=== PATIENT | male | born 1955 | race Hispanic/Latino ===

== ENCOUNTER 2019-09-25 17:56 | Inpatient (IN) | payer MEDICARE ==
[~2019-09-25] VITALS: Ht 175.3 cm; Wt 68.9 kg
[2019-09-25 18:30] LABS: BASOPHILS % (AUTO) 0.3 % (0.0-5.0); EOSINOPHILS % (AUTO) 0.1 % (0.0-8.0); HEMATOCRIT 35.9 % (42-54); LYMPHOCYTES % (AUTO) 8.5 % (21.0-51.0); MEAN CORPUSCULAR HEMOGLOBIN 29.1 pg (27.0-33.0); MEAN CORPUSCULAR HGB CONC 33.4 g/dL (32.0-36.0); MEAN CORPUSCULAR VOLUME 87.1 fL (79-99); MONOCYTES % (AUTO) 11.2 % (3.0-13.0); NEUTROPHILS % (AUTO) 79.2 % (40.0-77.0); PLATELET COUNT (AUTO) 335 K/uL (130-400); RED BLOOD CELL COUNT(AUTO) 4.12 MIL/uL (4.50-6.20); RED CELL DISTRIBUTION WIDTH 13.2 % (11.0-15.5); WHITE BLOOD COUNT (AUTO) 17.1 K/uL (4.8-10.8)
[2019-09-25 18:37] LABS: INR 0.94 (0.85-1.15); PARTIAL THROMBOPLASTIN TIME 28.5 SEC (26.3-35.5); PROTHROMBIN TIME 10.2 SEC (9.6-11.6)
[2019-09-25 18:41] LABS: APPEARANCE,URINE Clear (CLEAR); BILIRUBIN,URINE Negative (NEGATIVE); COLOR,URINE Yellow (YELLOW); GLUCOSE, URINE (UA) Negative (NEGATIVE); KETONES,URINE Negative (NEGATIVE); LEUKOCYTE ESTERASE ,URINE Moderate (NEGATIVE); NITRATE,URINE Negative (NEGATIVE); OCCULT BLOOD,URINE Negative (NEGATIVE); PROTEIN,URINE POS 1+ mg/dL (NEGATIVE); UROBILINOGEN,URINE 0.2 mg/dL (0.2-1.0)
[2019-09-25 18:50] LABS: ALBUMIN 3.1 g/dL (3.5-5.0); BILIRUBIN,TOTAL 0.2 mg/dL (0.2-1.0); CREATININE 1.7 mg/dL (0.5-1.5); TOTAL PROTEIN, SERUM 8.7 g/dL (6.0-8.3); TROPONIN I 0.04 ng/mL (0.00-0.06)
[2019-09-25 19:00] LABS: POTASSIUM 2.9 mmol/L (3.5-5.1)
[2019-09-25 19:21] LABS: BACTERIA,URINE Few /HPF (None Seen); MUCUS,URINE Few LPF (None Seen); RBC,URINE 0-1 /HPF (0-1); SQUAMOUS EPITHELIAL CELL,UR Few /HPF (0-2)
[2019-09-25] MEDS ORDERED: SODIUM CHLORIDE 0.9% 1000ML 1,000 ML IV ONE (20:33)
[2019-09-25] MEDS ORDERED: KETOROLAC TROMETHAMINE 30MG/ML ONE (20:33)
[2019-09-25] MEDS ORDERED: CEFTRIAXONE SODIUM 2 GM VIAL ONE (20:33)
[2019-09-25] MEDS ORDERED: POTASSIUM BICARB/CIT AC 25 MEQ TABLET.EFF ONE (21:38)
[2019-09-25] MEDS ORDERED: ONDANSETRON HCL 4 MG/2 ML VIAL IV PRN (22:00)
[2019-09-25] MEDS ORDERED: ACETAMINOPHEN 325 MG TAB PO PRN ×2 (22:00)
[2019-09-25] MEDS ORDERED: MAGNESIUM 2GM PREMIX 50ML 50 ML IV PRN (22:15)
[2019-09-25] MEDS: CEFTRIAXONE SODIUM 1 GM IVP SCH (22:15)
[2019-09-25] MEDS: LACTATED RINGERS 1000ML 1,000 ML IV SCH (22:15)
[2019-09-25 23:00] VITALS: BP 127/80
[2019-09-26] MEDS ORDERED: FOLI0.8T PO (00:46)
[2019-09-26] MEDS ORDERED: DEXL60CA3 PO (00:46)
[2019-09-26] MEDS ORDERED: LORA-192 PO (00:46)
[2019-09-26] MEDS ORDERED: TAMS-1 PO (00:46)
[2019-09-26] MEDS ORDERED: LEVO125T11 PO (00:46)
[2019-09-26] MEDS ORDERED: PHEN200C5 PO (00:46)
[2019-09-26] MEDS ORDERED: LOSA1TAB37 PO (00:46)
[2019-09-26 03:00] VITALS: BP 133/76
[2019-09-26 06:01] LABS: BASOPHILS % (AUTO) 0.4 % (0.0-5.0); EOSINOPHILS % (AUTO) 0.9 % (0.0-8.0); HEMATOCRIT 33.7 % (42-54); MEAN CORPUSCULAR HGB CONC 32.6 g/dL (32.0-36.0); MEAN CORPUSCULAR VOLUME 88.9 fL (79-99); MONOCYTES % (AUTO) 13.4 % (3.0-13.0); NEUTROPHILS % (AUTO) 71.8 % (40.0-77.0); PLATELET COUNT (AUTO) 295 K/uL (130-400); RED BLOOD CELL COUNT(AUTO) 3.79 MIL/uL (4.50-6.20); RED CELL DISTRIBUTION WIDTH 13.3 % (11.0-15.5); WHITE BLOOD COUNT (AUTO) 12.8 K/uL (4.8-10.8)
[2019-09-26 06:30] LABS: ALBUMIN 2.4 g/dL (3.5-5.0); BILIRUBIN,TOTAL 0.2 mg/dL (0.2-1.0); CREATININE 1.6 mg/dL (0.5-1.5); MAGNESIUM 2.4 mg/dL (1.80-2.40); THYROID STIMULATING HORMONE 2.15 uIU/mL (0.36-3.74); TOTAL PROTEIN, SERUM 7.4 g/dL (6.0-8.3)
[2019-09-26 06:34] LABS: POTASSIUM 2.7 mmol/L (3.5-5.1)
[2019-09-26 06:36] LABS: CRP QUANTITATIVE 157.5 mg/L (0.00-9.0)
[2019-09-26] MEDS: POTASSIUM CHLORIDE 20MEQ/100ML 100 ML IV PRN ×2 (06:41→10:46)
[2019-09-26] MEDS: LIDOCAINE HCL-MPF 1% 2ML VIAL IV PRN ×2 (06:41→10:46)
[2019-09-26 07:06] LABS: ERYTHROCYTE SEDIMENTATION RATE 65 MM/HR (0-20)
[2019-09-26 08:00] VITALS: BP 126/76
[2019-09-26] MEDS: LACTATED RINGERS 1000ML 1,000 ML IV SCH ×3 (10:08→21:47)
[2019-09-26] MEDS: FAMOTIDINE/PF 20 MG/2 ML VIAL IV SCH (10:08)
[2019-09-26] MEDS: CEFTRIAXONE SODIUM 1 GM IVP SCH ×2 (10:08→21:47)
--- NOTE | 2019-09-26 10:10 | NUR ---
PT. WITH POOR DENTITION, FOUL SMELLING BREATH AND PLAQUE NOTED. ORAL CARE PERFORMED WITH USE OF SUCTION SWAB PACK. Addendum: 09/26/19 at 1656 by SHIVANI NDIAYE RN RN VOIDED INCONTINENT IN BRIEF, CARE RENDERED AND REPOSITION.
--- NOTE | 2019-09-26 11:05 | NUR ---
RECEIVED CALL FROM PHIL PITTS, PT.'S SISTER/POA, UPDATED ON PT.'S STATUS AND QUESTIONS ANSWERED.
[2019-09-26 12:55] VITALS: BP 127/77
[2019-09-26] MEDS ORDERED: POTASSIUM CHLORIDE 20MEQ/100ML 100 ML IV SCH (13:00)
[2019-09-26] MEDS ORDERED: POTASSIUM CHLORIDE 20 MEQ/100 ML BAG IV SCH (13:00)
[2019-09-26 16:00] VITALS: BP 122/78
--- NOTE | 2019-09-26 16:35 | NUR ---
TRANSFERRED TO ROOM 415 VIA BED WITH BELONGINGS ACCOMPANIED BY THIS NURSE.
--- NOTE | 2019-09-26 16:48 | NUR ---
NOTIFIED PT.'S SISTER, PHIL PITTS, PT. WAS TRANSFERRED TO ROOM 415, VERBALIZED UNDERSTANDING. UPDATED ON STATUS AND QUESTIONS ANSWERED.
--- NOTE | 2019-09-26 17:49 | NUR ---
dante note call made to pt's next of kin sister marleny carcamo [phone]. and states pt resides with her at home. she is provider for him approx 5hrs daily. pt walks very little with cane, and mostly uses w/c, states she transports him to me as needed. dc plan is back home at [place]. she will pick him up at [place]. Addendum: 09/26/19 at 1755 by SAVANNA LINDSEY CM Amended: Links added.
--- NOTE | 2019-09-26 19:21 | NUR ---
RECEIVED TO RM 415 @ 1630. ALERT, IN NO APPARENT DISTRESS. AOX1, NON COMBATIVE. TRANSFER ORDERS ACKNOWLEDGED. FALL AND SEIZURE PRECAUTIONS INITIATED. STABLE.
[2019-09-26 19:36] VITALS: BP 137/79
[2019-09-26 23:46] VITALS: BP 136/76
[2019-09-27 03:59] VITALS: BP 138/80
[2019-09-27 04:48] LABS: BASOPHILS % (AUTO) 0.6 % (0.0-5.0); HEMATOCRIT 34.2 % (42-54); LYMPHOCYTES % (AUTO) 16.8 % (21.0-51.0); MEAN CORPUSCULAR HEMOGLOBIN 28.9 pg (27.0-33.0); MEAN CORPUSCULAR HGB CONC 32.7 g/dL (32.0-36.0); MEAN CORPUSCULAR VOLUME 88.1 fL (79-99); MONOCYTES % (AUTO) 12.5 % (3.0-13.0); NEUTROPHILS % (AUTO) 66.8 % (40.0-77.0); PLATELET COUNT (AUTO) 296 K/uL (130-400); RED BLOOD CELL COUNT(AUTO) 3.88 MIL/uL (4.50-6.20); RED CELL DISTRIBUTION WIDTH 13.2 % (11.0-15.5)
[2019-09-27 05:05] LABS: ALBUMIN 2.3 g/dL (3.5-5.0); BILIRUBIN,TOTAL 0.4 mg/dL (0.2-1.0); CREATININE 1.1 mg/dL (0.5-1.5); MAGNESIUM 2.5 mg/dL (1.80-2.40); POTASSIUM 3.5 mmol/L (3.5-5.1); TOTAL PROTEIN, SERUM 7.4 g/dL (6.0-8.3)
[2019-09-27 08:00] VITALS: BP 144/80
--- NOTE | 2019-09-27 09:10 | NUR ---
DR CHUA PAGED RE; + BC STATES OKAY WILL SEE PT.
--- NOTE | 2019-09-27 11:20 | NUR ---
DR. AMADOR PAGED RE;(+ BC) GRAM+ COCCI. STATES COULD BE A CONTAMINATE, BUT FOR NOW CONTINUE WITH ROCKIRBY[place]IN.
[2019-09-27] MEDS: LACTATED RINGERS 1000ML 1,000 ML IV SCH (11:46)
[2019-09-27] MEDS: FAMOTIDINE/PF 20 MG/2 ML VIAL IV SCH (11:46)
[2019-09-27] MEDS: CEFTRIAXONE SODIUM 1 GM IVP SCH ×2 (11:46→21:39)
[2019-09-27 12:00] VITALS: BP 148/77
--- NOTE | 2019-09-27 13:45 | NUR ---
RD NOTIFICATION Pt admitted with Sepsis, UTI, hypokalemia. Pt diet advanced to Puree diet order. Update (09/28/19) Diet modified to Puree, HTL. Pt with poor PO intake. Buttock Ulcer. Recommend protein modified pudding TID Recommend appetite stimulant as medically feasible RD to continue to monitor. Please notify as additional nutrition concerns arise. Thank you. Addendum: 09/28/19 at [address] Amended: Links added.
--- NOTE | 2019-09-27 14:40 | NUR ---
DYSPHAGIA EVAL COMPLETED RECOMMEND PUREED, HONEY THICK LIQUIDS, PILLS CRUSHED WITH PUREED TOLERATED. PER FAMILY (SISTER ZAK), Pt HAS ALWAYS BEEN IN PUREED DIET AND NEVER HAD COMPLICATIONS OF ASPIRATION. WE WILL MONITOR Pt WHILE ON PUREED DIET SINCE HE IS AT HIGH RISK OF ASPIRATION DUE TO SEVERE OROPHARYNGEAL DYSPHAGIA. TELEGRAPH INSPECTOR WILL FOLLOW Pt DURING THE LENGTH OF STAY IN THE HOSPITAL TO PROVIDE SKILLED SPEECH AND SWALLOWING EXERCISES. RECOMMENDATIONS: DYSPHAGIA THERAPY 3-5XWEEK TO INCREASE ORAL MOTOR STRENGTH AND PHARYNGEAL SWALLOW: LTG#1: Pt WILL TOLERATE LEAST RESTRICTIVE DIET TO MEET NUTRITION/HYDRATION WITH NO S/S OF ASPIRATION. LTG#2: SKILLED EDUCATION Pt/FAMILY/STAFF STG#1: Pt WILL PARTICIPATE IN LARYNGEAL ELEVATION/EXCURSION EXERCISES WITH 80% ACCURACY. STG#2: Pt WILL PARTICIPATE IN TONGUE BASE RETRACTION EXERCISES WITH 80% ACCURACY. STG#3: Pt WILL PARTICIPATE IN ORAL MOTOR EXERCISES WITH 80% ACCURACY. STG#4: Pt WILL TOLERATE THERAPEUTIC TRIALS OF NECTAR THICK LIQUIDS WITH NO OVERT S/S OF ASPIRATION. STG#5: Pt WILL BE ABLE TO PARTICIPATE IN MBSS AFTER 2-4 WEEKS OF THERAPEUTIC INTERVENTION. STG#6: SKILLED EDUCATION Pt/FAMILY/STAFF. TELEGRAPH INSPECTOR COORDINATED CARE WITH HAIDER Addendum: 09/27/[address]ON HERNANDEZ Amended: Links added.
--- NOTE | 2019-09-27 15:00 | NUR ---
[facility] consult Patient assessed as ordered. No open ulcer noted at this time. Report given to patient's nurse, Jose ECKERT. Alecia espinosass in use.
[2019-09-27 16:00] VITALS: BP 150/89
[2019-09-27] MEDS ORDERED: PHENYTOIN SODIUM 100 MG ERCAP PO ONE (16:03)
[2019-09-27] MEDS ORDERED: POTASSIUM CHLORIDE 20 MEQ ERTAB PO SCH (19:45)
[2019-09-27 20:42] VITALS: BP 147/78
[2019-09-27] MEDS: PHENYTOIN SODIUM 100 MG ERCAP PO SCH (21:39)
[2019-09-27] MEDS: TAMSULOSIN HCL 0.4 MG CAP.ER.24H PO SCH (21:39)
[2019-09-27] MEDS: LORAZEPAM 1 MG TABLET PO SCH (21:39)
[2019-09-27 23:59] VITALS: BP 136/79
[2019-09-28] MEDS: LACTATED RINGERS 1000ML 1,000 ML IV SCH ×2 (01:31→13:09)
[2019-09-28 04:07] VITALS: BP 143/75
[2019-09-28 05:13] LABS: BASOPHILS % (AUTO) 0.5 % (0.0-5.0); EOSINOPHILS % (AUTO) 3.7 % (0.0-8.0); LYMPHOCYTES % (AUTO) 13.7 % (21.0-51.0); MEAN CORPUSCULAR HEMOGLOBIN 28.8 pg (27.0-33.0); MEAN CORPUSCULAR HGB CONC 32.9 g/dL (32.0-36.0); MEAN CORPUSCULAR VOLUME 87.7 fL (79-99); MONOCYTES % (AUTO) 12.4 % (3.0-13.0); NEUTROPHILS % (AUTO) 69.3 % (40.0-77.0); PLATELET COUNT (AUTO) 344 K/uL (130-400); RED BLOOD CELL COUNT(AUTO) 3.99 MIL/uL (4.50-6.20); WHITE BLOOD COUNT (AUTO) 9.8 K/uL (4.8-10.8)
[2019-09-28 05:30] LABS: ALBUMIN 2.3 g/dL (3.5-5.0); BILIRUBIN,TOTAL 0.3 mg/dL (0.2-1.0); CREATININE 1.1 mg/dL (0.5-1.5); CRP QUANTITATIVE 112.5 mg/L (0.00-9.0); TOTAL PROTEIN, SERUM 7.6 g/dL (6.0-8.3)
[2019-09-28] MEDS: LEVOTHYROXINE 125 MCG TABLET PO SCH (06:32)
[2019-09-28 07:30] VITALS: BP 149/84
[2019-09-28] MEDS: **HM** DEXILANT 60MG PO SCH (08:14)
[2019-09-28] MEDS: FOLIC ACID 1 MG TABLET PO SCH (09:19)
[2019-09-28] MEDS: PHENYTOIN SODIUM 100 MG ERCAP PO SCH ×2 (09:20→20:02)
[2019-09-28] MEDS: LOSARTAN/HYDROCHLOROTHIAZIDE 50-12.5MG TABLET PO SCH (09:20)
[2019-09-28] MEDS: TAMSULOSIN HCL 0.4 MG CAP.ER.24H PO SCH ×2 (09:20→20:02)
[2019-09-28] MEDS: CEFTRIAXONE SODIUM 1 GM IVP SCH ×2 (09:21→22:36)
[2019-09-28] MEDS: FAMOTIDINE 20MG TAB 20 MG TAB PO SCH (09:21)
[2019-09-28] MEDS: LORAZEPAM 1 MG TABLET PO SCH ×2 (09:21→20:02)
--- NOTE | 2019-09-28 09:45 | NUR ---
SWALLOWING TREATMENT COMPLETED RECORDIST CHIEF COORDINATED WITH NURSE QUICK. Pt CURRENTLY ON PUREED WITH HONEY THICK LIQUIDS. Pt CONSUMING VERY MINIMAL P.O. INTAKE WITH MAX ASSISTANCE. RECORDIST CHIEF PROVIDED THERAPEUTIC TRIALS DURING BREAKFAST WITH 40% ACCURACY GIVEN MAX CUES (Pt COUGHED ONCE). RECORDIST CHIEF ASSISTED NURSE QUICK ADMINISTER CRUSHED MEDS WITH APPLESAUCE. RECORDIST CHIEF OBSERVED Pt SELF FEED PUREED WITH NO S/S OF ASPIRATION. RECORDIST CHIEF WILL CONTINUE TO FOLLOW Pt TO ADDRESS SWALLOWING GOALS AND PRECAUTIONS. Addendum: 09/28/[address]ON HERNANDEZ Amended: Links added.
[2019-09-28 11:00] VITALS: BP 127/77
[2019-09-28 16:00] VITALS: BP 136/80
[2019-09-28 20:18] VITALS: BP 136/76
[2019-09-29] VITALS (7 sets, daily range): BP systolic 121–147; BP diastolic 75–88
[2019-09-29] MEDS: LACTATED RINGERS 1000ML 1,000 ML IV SCH ×2 (03:14→20:01)
[2019-09-29 04:14] LABS: BASOPHILS % (AUTO) 0.6 % (0.0-5.0); EOSINOPHILS % (AUTO) 4.2 % (0.0-8.0); HEMATOCRIT 35.7 % (42-54); LYMPHOCYTES % (AUTO) 17.8 % (21.0-51.0); MEAN CORPUSCULAR HEMOGLOBIN 28.1 pg (27.0-33.0); MEAN CORPUSCULAR HGB CONC 31.9 g/dL (32.0-36.0); MEAN CORPUSCULAR VOLUME 88.1 fL (79-99); MONOCYTES % (AUTO) 11.9 % (3.0-13.0); NEUTROPHILS % (AUTO) 65.2 % (40.0-77.0); PLATELET COUNT (AUTO) 333 K/uL (130-400); RED BLOOD CELL COUNT(AUTO) 4.05 MIL/uL (4.50-6.20); RED CELL DISTRIBUTION WIDTH 13.1 % (11.0-15.5)
[2019-09-29 04:32] LABS: ALBUMIN 2.4 g/dL (3.5-5.0); BILIRUBIN,TOTAL 0.1 mg/dL (0.2-1.0); POTASSIUM 3.6 mmol/L (3.5-5.1); TOTAL PROTEIN, SERUM 7.5 g/dL (6.0-8.3)
[2019-09-29] MEDS: LEVOTHYROXINE 125 MCG TABLET PO SCH (06:24)
[2019-09-29] MEDS: **HM** DEXILANT 60MG PO SCH (09:00)
[2019-09-29] MEDS: PHENYTOIN SODIUM 100 MG ERCAP PO SCH ×2 (10:35→20:02)
[2019-09-29] MEDS: CEFTRIAXONE SODIUM 1 GM IVP SCH (10:35)
[2019-09-29] MEDS: LORAZEPAM 1 MG TABLET PO SCH ×2 (10:35→20:02)
[2019-09-29] MEDS: FOLIC ACID 1 MG TABLET PO SCH (10:35)
[2019-09-29] MEDS: TAMSULOSIN HCL 0.4 MG CAP.ER.24H PO SCH ×2 (10:35→20:02)
[2019-09-29] MEDS: LOSARTAN/HYDROCHLOROTHIAZIDE 50-12.5MG TABLET PO SCH (10:35)
[2019-09-29] MEDS: FAMOTIDINE 20MG TAB 20 MG TAB PO SCH (10:35)
--- NOTE | 2019-09-29 15:52 | NUR ---
SURYA FOLLOW UP Pt with MAXIME Rey diet order in place. No report of GI distress. PO intake at 100%. LBM 09/28/19. Recommend snacks between meals RD to monitor Pt weight, PO status, nutrition labs. Please notify as additional nutrition concerns arise. Thank you. Addendum: 09/29/19 at [address] Amended: Links added.
[2019-09-29] MEDS: CEFUROXIME AXETIL 250 MG TABLET PO SCH (20:02)
[2019-09-30 03:35] VITALS: BP 139/88
[2019-09-30 04:06] LABS: BASOPHILS % (AUTO) 0.5 % (0.0-5.0); EOSINOPHILS % (AUTO) 4.7 % (0.0-8.0); HEMATOCRIT 35.7 % (42-54); LYMPHOCYTES % (AUTO) 17.5 % (21.0-51.0); MEAN CORPUSCULAR HGB CONC 31.7 g/dL (32.0-36.0); MEAN CORPUSCULAR VOLUME 88.6 fL (79-99); MONOCYTES % (AUTO) 9.6 % (3.0-13.0); NEUTROPHILS % (AUTO) 67.3 % (40.0-77.0); PLATELET COUNT (AUTO) 340 K/uL (130-400); RED BLOOD CELL COUNT(AUTO) 4.03 MIL/uL (4.50-6.20); RED CELL DISTRIBUTION WIDTH 13.2 % (11.0-15.5); WHITE BLOOD COUNT (AUTO) 10.1 K/uL (4.8-10.8)
[2019-09-30 04:27] LABS: ALBUMIN 2.5 g/dL (3.5-5.0); CREATININE 0.9 mg/dL (0.5-1.5); CRP QUANTITATIVE 53.3 mg/L (0.00-9.0); MAGNESIUM 1.7 mg/dL (1.80-2.40); PHOSPHORUS 3.4 mg/dL (2.5-4.9); POTASSIUM 3.5 mmol/L (3.5-5.1)
[2019-09-30] MEDS: LEVOTHYROXINE 125 MCG TABLET PO SCH (05:42)
[2019-09-30 07:28] LABS: ALANINE AMINOTRANSFERASE 100 U/L (12-78); ALBUMIN 2.5 g/dL (3.5-5.0); ASPARTATE AMINOTRANSFERASE 56 U/L (10-37); BILIRUBIN,DIRECT < 0.1 mg/dL (0.0-0.3); BILIRUBIN,TOTAL 0.1 mg/dL (0.2-1.0); TOTAL PROTEIN, SERUM 7.8 g/dL (6.0-8.3)
[2019-09-30 08:00] VITALS: BP 120/77
[2019-09-30] MEDS: **HM** DEXILANT 60MG PO SCH (09:00)
[2019-09-30] MEDS: CEFUROXIME AXETIL 250 MG TABLET PO SCH ×2 (10:07→21:12)
[2019-09-30] MEDS: PHENYTOIN SODIUM 100 MG ERCAP PO SCH ×2 (10:08→21:12)
[2019-09-30] MEDS: TAMSULOSIN HCL 0.4 MG CAP.ER.24H PO SCH ×2 (10:08→21:13)
[2019-09-30] MEDS: FAMOTIDINE 20MG TAB 20 MG TAB PO SCH (10:08)
[2019-09-30] MEDS: FOLIC ACID 1 MG TABLET PO SCH (10:08)
[2019-09-30] MEDS: LOSARTAN/HYDROCHLOROTHIAZIDE 50-12.5MG TABLET PO SCH (10:08)
[2019-09-30] MEDS: LORAZEPAM 1 MG TABLET PO SCH ×2 (10:08→21:13)
[2019-09-30] MEDS: LACTATED RINGERS 1000ML 1,000 ML IV SCH ×2 (10:09→21:13)
[2019-09-30 12:00] VITALS: BP 126/84
[2019-09-30 16:00] VITALS: BP 128/79
[2019-09-30 20:00] VITALS: BP 129/76
[2019-09-30 23:30] VITALS: BP 116/72
[2019-10-01 04:00] VITALS: BP 129/73
[2019-10-01 05:35] LABS: ALBUMIN 2.7 g/dL (3.5-5.0); BILIRUBIN,TOTAL 0.2 mg/dL (0.2-1.0); CREATININE 1.1 mg/dL (0.5-1.5); POTASSIUM 4.1 mmol/L (3.5-5.1); TOTAL PROTEIN, SERUM 8.1 g/dL (6.0-8.3)
[2019-10-01 07:37] VITALS: BP 121/80
[2019-10-01] MEDS: LEVOTHYROXINE 125 MCG TABLET PO SCH (07:40)
[2019-10-01] MEDS: FOLIC ACID 1 MG TABLET PO SCH (08:48)
[2019-10-01] MEDS: FAMOTIDINE 20MG TAB 20 MG TAB PO SCH (08:48)
[2019-10-01] MEDS: PHENYTOIN SODIUM 100 MG ERCAP PO SCH ×2 (08:48→21:13)
[2019-10-01] MEDS: TAMSULOSIN HCL 0.4 MG CAP.ER.24H PO SCH ×2 (08:48→21:13)
[2019-10-01] MEDS: CEFUROXIME AXETIL 250 MG TABLET PO SCH ×2 (08:48→21:13)
[2019-10-01] MEDS: LORAZEPAM 1 MG TABLET PO SCH ×2 (08:49→21:13)
[2019-10-01] MEDS: LOSARTAN/HYDROCHLOROTHIAZIDE 50-12.5MG TABLET PO SCH (08:49)
[2019-10-01 11:31] VITALS: BP 123/74
[2019-10-01 15:26] VITALS: BP 113/74
[2019-10-01 15:38] LABS: POTASSIUM 3.7 mmol/L (3.5-5.1)
--- NOTE | 2019-10-01 15:54 | NUR ---
SURYA FOLLOW UP Pt tolerating Puree, HTL diet order with no report of GI distress, Good PO intake at 75%. Per hand embroiderer, Pt with great appetite. No nutritional concerns at this time. Recommend continue current diet order. Please notify as nutritional concerns arise. Thank you. Addendum: 10/01/19 at [address] Amended: Links added.
[2019-10-01] MEDS: LACTATED RINGERS 1000ML 1,000 ML IV SCH (16:35)
[2019-10-01 20:16] VITALS: BP 122/72
[2019-10-02] VITALS (20 sets, daily range): BP systolic 71–154; BP diastolic 58–87
[2019-10-02 04:24] LABS: BASOPHILS % (AUTO) 0.4 % (0.0-5.0); EOSINOPHILS % (AUTO) 3.3 % (0.0-8.0); HEMATOCRIT 38.8 % (42-54); LYMPHOCYTES % (AUTO) 14.6 % (21.0-51.0); MEAN CORPUSCULAR HEMOGLOBIN 28.1 pg (27.0-33.0); MONOCYTES % (AUTO) 6.4 % (3.0-13.0); PLATELET COUNT (AUTO) 393 K/uL (130-400); RED BLOOD CELL COUNT(AUTO) 4.41 MIL/uL (4.50-6.20); RED CELL DISTRIBUTION WIDTH 13.2 % (11.0-15.5); WHITE BLOOD COUNT (AUTO) 11.6 K/uL (4.8-10.8)
[2019-10-02] MEDS: LACTATED RINGERS 1000ML 1,000 ML IV SCH ×2 (04:37→21:24)
[2019-10-02 05:00] LABS: INR 0.96 (0.85-1.15); PARTIAL THROMBOPLASTIN TIME 26.4 SEC (26.3-35.5); PROTHROMBIN TIME 10.4 SEC (9.6-11.6)
[2019-10-02 06:23] LABS: ALBUMIN 2.7 g/dL (3.5-5.0); BILIRUBIN,DIRECT 0.1 mg/dL (0.0-0.3); BILIRUBIN,TOTAL 0.1 mg/dL (0.2-1.0); TOTAL PROTEIN, SERUM 8.1 g/dL (6.0-8.3)
[2019-10-02] MEDS: LEVOTHYROXINE 125 MCG TABLET PO SCH (06:44)
[2019-10-02] MEDS ORDERED: BUPIVACAINE/PF 0.5% 30ML VIAL ONE (11:24)
[2019-10-02] MEDS ORDERED: SUCCINYLCHOLINE CHLORIDE 20 MG/ML 10 ML VIAL ONE (11:27)
[2019-10-02] MEDS ORDERED: LIDOCAINE PF 2% 5ML ABBOJECT ONE (11:27)
[2019-10-02] MEDS ORDERED: FENTANYL CITRATE PF 50 MCG/1 ML 2ML VIAL ONE (11:28)
[2019-10-02] MEDS ORDERED: PROPOFOL 10 MG/ML 20ML VIAL IV ONE (11:28)
[2019-10-02] MEDS ORDERED: ROCURONIUM 10MG/1ML SYR 10 MG/ML ML ONE (11:28)
[2019-10-02] MEDS ORDERED: GLYCOPYRROLATE 1 MG/5 ML SYRINGE ONE (12:13)
[2019-10-02] MEDS ORDERED: NEOSTIGMINE 5MG/5ML SYR IV ONE (12:13)
[2019-10-02] MEDS: FAMOTIDINE 20MG TAB 20 MG TAB PO SCH (14:23)
[2019-10-02] MEDS: LORAZEPAM 1 MG TABLET PO SCH ×2 (14:24→21:24)
[2019-10-02] MEDS: LOSARTAN/HYDROCHLOROTHIAZIDE 50-12.5MG TABLET PO SCH (14:24)
[2019-10-02] MEDS: TAMSULOSIN HCL 0.4 MG CAP.ER.24H PO SCH ×2 (14:24→21:24)
[2019-10-02] MEDS: FOLIC ACID 1 MG TABLET PO SCH (14:24)
[2019-10-02] MEDS: CEFUROXIME AXETIL 250 MG TABLET PO SCH ×2 (14:25→21:24)
[2019-10-02] MEDS: PHENYTOIN SODIUM 100 MG ERCAP PO SCH ×2 (14:25→21:24)
[2019-10-03 03:43] VITALS: BP 120/73
[2019-10-03 05:06] LABS: BASOPHILS % (AUTO) 0.3 % (0.0-5.0); EOSINOPHILS % (AUTO) 1.3 % (0.0-8.0); LYMPHOCYTES % (AUTO) 11.2 % (21.0-51.0); MEAN CORPUSCULAR HEMOGLOBIN 28.7 pg (27.0-33.0); MEAN CORPUSCULAR HGB CONC 32.4 g/dL (32.0-36.0); MEAN CORPUSCULAR VOLUME 88.5 fL (79-99); NEUTROPHILS % (AUTO) 75.8 % (40.0-77.0); PLATELET COUNT (AUTO) 415 K/uL (130-400); RED BLOOD CELL COUNT(AUTO) 4.18 MIL/uL (4.50-6.20); RED CELL DISTRIBUTION WIDTH 13.3 % (11.0-15.5)
[2019-10-03 05:22] LABS: CREATININE 1.1 mg/dL (0.5-1.5)
[2019-10-03] MEDS: LACTATED RINGERS 1000ML 1,000 ML IV SCH ×2 (05:41→16:53)
[2019-10-03] MEDS: LEVOTHYROXINE 125 MCG TABLET PO SCH (05:41)
[2019-10-03 08:00] VITALS: BP 118/85
[2019-10-03] MEDS: PHENYTOIN SODIUM 100 MG ERCAP PO SCH ×2 (08:44→20:28)
[2019-10-03] MEDS: CEFUROXIME AXETIL 250 MG TABLET PO SCH ×2 (08:44→20:28)
[2019-10-03] MEDS: FAMOTIDINE 20MG TAB 20 MG TAB PO SCH (08:44)
[2019-10-03] MEDS: FOLIC ACID 1 MG TABLET PO SCH (08:44)
[2019-10-03] MEDS: TAMSULOSIN HCL 0.4 MG CAP.ER.24H PO SCH ×2 (08:44→20:28)
[2019-10-03] MEDS: LORAZEPAM 1 MG TABLET PO SCH ×2 (08:44→20:27)
[2019-10-03] MEDS: LOSARTAN/HYDROCHLOROTHIAZIDE 50-12.5MG TABLET PO SCH (08:44)
[2019-10-03 11:53] VITALS: BP 125/77
[2019-10-03 16:00] VITALS: BP 132/74
--- NOTE | 2019-10-03 16:51 | NUR ---
Paged Dr. Degroot twice to notify of MD request to discharge home, unable to leave voicemail on service, will notify HS.
[2019-10-03] MEDS ORDERED: CEFU500T67 PO ×2 (19:00→19:16)
[2019-10-03 19:46] VITALS: BP 110/81
--- NOTE | 2019-10-03 21:07 | NUR ---
Pt was discharged as per MD instructions, -marleny verbalized understanding at teachings: f/u with HCPs, meds/prescriptions, monitoring pt's health and signs of sepsis, and dietary instructions. IV site discontinued, pt was escorted via wheelchair by RN and sister's vehicle.
== END 2019-10-03 20:55 | disposition home or self-care (01) | DRG 853 ==
LOC: EDH 17:56 → EDHIP 21:53 → 2DH 22:10 → 4CH 09-26 16:46
PROVIDERS: ADMIT Hospitalist; ATTEND Hospitalist
PROC: 0FT44ZZ Resection of Gallbladder, Percutaneous Endoscopic Approach (ICD-10-PCS; principal; 2019-10-02 11:40)
DX: A41.9 Sepsis, unspecified organism (principal); R53.2 Functional quadriplegia; N39.0 Urinary tract infection, site not specified; N17.9 Acute kidney failure, unspecified; K81.0 Acute cholecystitis; L98.429 Non-pressure chronic ulcer of back with unspecified severity; E86.0 Dehydration; I10 Essential (primary) hypertension; F79 Unspecified intellectual disabilities; F03.90 Unspecified dementia, unspecified severity, without behavioral disturbance, psychotic disturbance, mood disturbance, and anxiety; Z20.828 Contact with and (suspected) exposure to other viral communicable diseases; M79.601 Pain in right arm; M79.602 Pain in left arm; N40.0 Benign prostatic hyperplasia without lower urinary tract symptoms; G40.909 Epilepsy, unspecified, not intractable, without status epilepticus; E86.1 Hypovolemia; E66.9 Obesity, unspecified; R74.0 Nonspecific elevation of levels of transaminase and lactic acid dehydrogenase [LDH]; E03.9 Hypothyroidism, unspecified; Z74.01 Bed confinement status; Z79.899 Other long term (current) drug therapy; Z68.22 Body mass index [BMI] 22.0-22.9, adult
CPT/HCPCS: 36415; 71045; 76705; 78226; 80048; 80053; 80076; 81001; 82040; 82550; 82728; 83605; 83615; 83735; 83874; 84100; 84132; 84145; 84443; 84484; 85025; 85610; 85651; 85730; 86140; 87040; 87077; 87088; 87186; 87635; 88304; 92526; 92610; 93005; 93925; 97039; A9537; G0378; J0330; J0696; J1885; J2001; J2704; J2710; J3010; J3475; J3480; J3490; J7030; J7120